=== PATIENT | female | born 1995 | race Asian ===

== ENCOUNTER 2020-07-30 06:29 | Emergency (ER) | payer OTHER ==
[~2020-07-30] VITALS: Ht 160 cm; Wt 55.0 kg
[2020-07-30 06:39] VITALS: BP 100/74
[2020-07-30] MEDS ORDERED: TETANUS, DIPHTHERIA, PERTUSSIS VAC/PF 0.5ML (>7YR OLD) IM ONE (07:15)
[2020-07-30] MEDS ORDERED: BO1 TP (07:32)
== END 2020-07-30 09:10 | disposition home or self-care (01) ==
LOC: ER 06:29
DX: S61.213A Laceration without foreign body of left middle finger without damage to nail, initial encounter (principal); W25.XXXA Contact with sharp glass, initial encounter; Y93.89 Activity, other specified; Y92.010 Kitchen of single-family (private) house as the place of occurrence of the external cause
CPT/HCPCS: 12002; 90471; 90715; 99283; A4217; Z7610